=== PATIENT | female | born 1950 | race Caucasian/White ===

== ENCOUNTER 2017-05-25 14:03 | Outpatient (CLI) | payer MEDICARE ==
--- NOTE | 2017-05-25 21:01 | XRAY Report ---
DATE OF SERVICE: 05/25/2017 TWO VIEW CHEST: 05/25/2017 CLINICAL INDICATION: COPD. Frontal and lateral views of the chest demonstrate a normal cardiac silhouette. The lungs are hyperinflated, suggestive of COPD, with trace effusions. No focal consolidation or pneumothorax is seen. No pulmonary vascular congestion. IMPRESSION: Hyperinflation. Trace pleural effusions posteriorly. TD: 05/25/2017 21:57
== END 2017-05-25 14:04 | disposition home or self-care (01) ==
LOC: DI 14:03
PROVIDERS: ATTEND Nurse Practitioner
DX: J44.1 Chronic obstructive pulmonary disease with (acute) exacerbation (principal)
CPT/HCPCS: 71046

== ENCOUNTER 2017-07-17 17:00 | Emergency (ER) | payer MEDICARE ==
--- NOTE | 2017-07-17 18:36 | ED Physician Documentation ---
History of Present Illness - Stated complaint Stated Complaint: R LEG RED/SWOLLEN - Chief complaint Chief Complaint: Ext Problem - History obtained from History obtained from: Patient - History of Present Illness Timing: How many days ago (3) Pain level max: 5 Pain level now: 4 Improved by: nothing Worsened by: nothing - Additonal information Additional information: states feels like she has an infection on the R armijo x 3 days. states enlarged today. No fevers. States feels fatigued. She has shortness of breath for the past several weeks. History of COPD. Review of Systems Constitutional: denies: Fever, Chills Ears: denies: Ear pain Nose: denies: Rhinorrhea / runny nose, Congestion Throat: denies: Sore throat Cardiac: denies: Chest pain / pressure Respiratory: reports: Wheezing. denies: Cough GI: denies: Vomiting, Diarrhea Skin: denies: Rash Musculoskeletal: denies: Neck pain, Back pain Neurologic: denies: Headache PD PAST MEDICAL HISTORY - Past Medical History Past Medical History: Yes Respiratory: Asthma, COPD - Past Surgical History Past Surgical History: No - Present Medications Home Medications: Ambulatory Orders Medication Instructions Recorded Confirmed Albuterol Sulfate [Proair Hfa 05/18/17 Inhaler] Fluticasone/Salmeterol [Advair 05/18/17 250-50 Diskus] Tiotropium [place] [Spiriva] 05/18/17 Sulfamethox/Trimeth 800/160 1 each PO BID #14 tablet 07/17/17 [Bactrim Ds 800/160] - Allergies Allergies/Adverse Reactions: Allergies Allergy/AdvReac Type Severity Reaction Status Date / Time clindamycin Allergy Rash Verified 07/17/17 17:57 Penicillins Allergy Rash Verified 07/17/17 17:57 - Social History Does the pt smoke?: No Smoking Status: Never smoker PD ED PE NORMAL - Vitals Vital signs reviewed: Yes - General General: Alert and oriented X 3, No acute distress - HEENT HEENT: Moist mucous membranes - Neck Neck: Supple, no meningeal sign - Cardiac Cardiac: RRR - Respiratory Respiratory: No respiratory distress, Other (Mild wheeze bilaterally) - Abdomen Abdomen: Soft, Non tender, Non distended - Derm Derm: Warm and dry - Extremities Extremities: Other (R lower leg - 10 x 8 cm area erythema with a smaller 2 x 1 cm area of fluctuance with drainage.) - Neuro Neuro: Alert and oriented X 3 - Psych Psych: Normal mood, Normal affect Results - Vitals Vitals: Vital Signs - 24 hr 07/17/17 07/17/17 07/17/17 17:46 18:55 20:01 Temperature 37.4 C 37.0 C Heart Rate 106 H 87 94 Respiratory 18 20 20 Rate Blood Pressure 147/70 H 146/88 H O2 Saturation 96 97 Oxygen O2 Source Room air - Labs Labs: Microbiology 07/17/17 18:32 Wound Culture - Preliminary Abscess PD MEDICAL DECISION MAKING - ED course Complexity details: re-evaluated patient, considered differential, d/w patient ED course: Patient is a 67-year-old female who presents to the emergency department with cellulitis of the right lower leg also a small abscess that spontaneously drained. The remainder of the purulence was expressed, wound culture sent. Will start on antibiotics and follow-up closely with her doctor. No evidence of osteomyelitis, sepsis. Patient counseled regarding signs and symptoms for which I believe and urgent re-evaluation would be necessary. Patient with good understanding of and agreement to plan and is comfortable going home at this time This document was made in part using voice recognition software. While efforts are made to proofread this document, sound alike and grammatical errors may occur. Patient also is using her Advair at home but not her albuterol, was given a breathing treatment here and feels better. Will encourage her to use her albuterol at home. Departure - Departure Disposition: Home, Self Care Clinical Impression: Cellulitis and abscess of leg COPD (chronic obstructive pulmonary disease) Qualifiers: COPD type: unspecified COPD Qualified Code(s): J44.9 - Chronic obstructive pulmonary disease, unspecified Condition: Good Instructions: ED Abscess IandD, ED Infec Skin Cellulitis Follow-Up: JEREMIAH AHMADI ARNP [Primary Care Provider] - Within 1 week Prescriptions: Sulfamethox/Trimeth 800/160 [Bactrim Ds 800/160] 1 each PO BID #14 tablet Comments: Take all antibiotics until gone. Return if you worsen. Discharge Date/Time: 07/17/17 20:00
[2017-07-17] MEDS ORDERED: IPRATROPIUM/ALBUTEROL 3 ML NEB INH STA (18:38)
[2017-07-17] MEDS ORDERED: SULFAMETH/TRIMETH DS 800/160 MG TABLET PO STA (18:47)
[2017-07-17] MEDS ORDERED: LIDOCAINE 1% 2 ML VIAL SUBQ ONE (18:47)
[2017-07-17] MEDS ORDERED: cefTRIAXone 1 GM VIAL IM STA (18:47)
[2017-07-17 20:04] VITALS: BP 146/88
== END 2017-07-17 20:00 | disposition home or self-care (01) ==
LOC: ED 17:00
DX: L03.115 Cellulitis of right lower limb (principal); L02.415 Cutaneous abscess of right lower limb; J44.9 Chronic obstructive pulmonary disease, unspecified
CPT/HCPCS: 87070; 87205; 94640; 96372; 99283; 99284; A9270

== ENCOUNTER 2019-02-21 15:03 | Emergency (ER) | payer MEDICARE ==
[2019-02-21 15:26] VITALS: BP 144/69
== END 2019-02-21 15:32 | disposition left against medical advice (07) ==
LOC: ED 15:03
DX: Z53.21 Procedure and treatment not carried out due to patient leaving prior to being seen by health care provider (principal)

== ENCOUNTER 2019-08-01 17:41 | Outpatient (CLI) | payer MEDICARE | END 2019-08-01 17:42 | disposition home or self-care (01) | LOC: COV 17:41 | PROVIDERS: ATTEND Family Medicine | DX: Z53.9 Procedure and treatment not carried out, unspecified reason (principal) | CPT/HCPCS: 81599 ==

== ENCOUNTER 2020-01-13 14:13 | Emergency (ER) | payer MEDICARE ==
[2020-01-13 14:30] VITALS: BP 122/70
--- NOTE | 2020-01-13 14:39 | ED Physician Documentation ---
History of Present Illness - Stated complaint Stated Complaint: SOA - Chief complaint Chief Complaint: Resp - History obtained from History obtained from: Patient - History of Present Illness Timing: Today Pain level max: 0 Pain level now: 0 - Additonal information Additional information: 69-year-old female presents to the emergency department with dyspnea for the past several days. History of COPD. Fevers 10 1-1 02 at home. Nothing makes it better or worse. Review of Systems Constitutional: denies: Fever, Chills Ears: denies: Ear pain Nose: denies: Rhinorrhea / runny nose, Congestion Throat: denies: Sore throat Cardiac: denies: Chest pain / pressure, Palpitations Respiratory: reports: Dyspnea, Cough, Wheezing GI: denies: Nausea, Vomiting, Diarrhea Skin: denies: Rash Musculoskeletal: denies: Neck pain, Back pain Neurologic: denies: Headache PD PAST MEDICAL HISTORY - Past Medical History Respiratory: Asthma, COPD - Past Surgical History Past Surgical History: No - Present Medications Home Medications: Ambulatory Orders Medication Instructions Recorded Confirmed Albuterol Sulfate [Proair Hfa 05/18/17 Inhaler] Fluticasone/Salmeterol [Advair 05/18/17 250-50 Diskus] Tiotropium [place] [Spiriva] 05/18/17 Sulfamethox/Trimeth 800/160 1 each PO BID #14 tablet 07/17/17 [Bactrim Ds 800/160] Cefdinir 300 mg PO BID #20 capsule 01/13/20 Doxycycline Hyclate 100 mg PO BID #20 capsule 01/13/20 - Allergies Allergies/Adverse Reactions: Allergies Allergy/AdvReac Type Severity Reaction Status Date / Time clindamycin Allergy Rash Verified 01/13/20 14:25 Penicillins Allergy Rash Verified 01/13/20 14:25 - Social History Does the pt smoke?: No Smoking Status: Never smoker PD ED PE NORMAL - Vitals Vital signs reviewed: Yes - General General: Alert and oriented X 3, No acute distress - HEENT HEENT: Moist mucous membranes - Neck Neck: Supple, no meningeal sign - Cardiac Cardiac: RRR - Respiratory Respiratory: Other (mildly diminished Breath sounds bilaterally. Otherwise clear) - Abdomen Abdomen: Soft, Non tender, Non distended - Derm Derm: Warm and dry - Neuro Neuro: Alert and oriented X 3 - Psych Psych: Normal mood, Normal affect Results - Vitals Vitals: Vital Signs - 24 hr 01/13/20 14:26 Temperature 37.1 C Heart Rate 102 H Respiratory 16 Rate Blood Pressure 122/70 O2 Saturation 100 Oxygen O2 Source Room air - EKG (time done) 1424 Rate: Rate (enter#) (97) Rhythm: NSR [place]: Normal Intervals: Normal NC QRS: Normal Ischemia: Normal ST segments - Rads (name of study) cxr Radiology: Prelim report reviewed, EMP read contemporaneously, See rad report (Mild or early pneumonia at the medial lung bases, lingular segment on the left and medial segment right middle lobe on the right. ) PD MEDICAL DECISION MAKING - ED course Complexity details: reviewed results, re-evaluated patient, considered differential, d/w patient ED course: With what appears to be pneumonia clinically and on chest x-ray. Will place on cefdinir and doxycycline. She is well-appearing, nontoxic. Afebrile. No hyp oxia. No respiratory distress. Patient counseled regarding signs and symptoms for which I believe and urgent re-evaluation would be necessary. Patient with good understanding of and agreement to plan and is comfortable going home at this time This document was made in part using voice recognition software. While efforts are made to proofread this document, sound alike and grammatical errors may occur. Departure - Departure Disposition: 01 Home, Self Care Clinical Impression: Pneumonia Qualifiers: Pneumonia type: due to unspecified organism Laterality: right Lung location: lower lobe of lung Qualified Code(s): J18.9 - Pneumonia, unspecified organism Condition: Good Instructions: ED Pneumonia Adult Follow-Up: your,doctor in 1 week [Other] Prescriptions: Cefdinir 300 mg PO BID #20 capsule Doxycycline Hyclate 100 mg PO BID #20 capsule Comments: Take all antibiotics until gone. Return if you worsen. Follow-up with your doctor in 3 to 4 days for recheck.
[2020-01-13] MEDS ORDERED: DOXYCYCLINE 100 MG TABLET PO STA (14:59)
--- NOTE | 2020-01-13 15:09 | XRAY Report ---
PROCEDURE: Chest 2 View X-Ray INDICATIONS: cough TECHNIQUE: 2 view(s) of the chest. COMPARISON: None. FINDINGS: Surgical changes and devices: None. Lungs and pleura: No pleural effusions or pneumothorax. Lungs are abnormal with mild alveolar infil tration at the lingular segment area of the left upper lobe and the medial segmental right middle lob e region of the right lower lung. Mediastinum: Mediastinal contours are normal. Heart size is normal. Bones and chest wall: No suspicious bony abnormalities. Soft tissues appear unremarkable. IMPRESSION: Mild or early pneumonia at the medial lung bases, lingular segment on the left and media l segment right middle lobe on the right. Reviewed by: Dallas Isaac MD on 01/13/2020 3:07 PM PDT Approved by: Dallas Isaac MD on 01/13/2020 3:07 PM PDT Station ID: [id number]
== END 2020-01-13 15:24 | disposition home or self-care (01) ==
LOC: ED 14:13
DX: J18.9 Pneumonia, unspecified organism (principal)
CPT/HCPCS: 71046; 93005; 99283; 99284; A9270